=== PATIENT | male | born 1995 | race Caucasian/White ===

== ENCOUNTER 2018-08-17 07:27 | Emergency (ER) | payer BC ==
--- NOTE | 2018-08-17 07:37 | ED ---
HPI Chest Pain - HPI Summary HPI Summary: Pt is a 23 y/o male who presents to the ED c/o CP. He has had constant mid- sternal CP since 14:00 yesterday while lying on his cough. The pain is rated an 8/10 in severity and he reports shooting pains up his neck. Pain is made worse with lying down and deep breathing. Pt also c/o SOB and cough, but denies any sore throat, rhinorrhea, LE edema, or LE pain. He is unsure if he has any heartburn. Pt notes recent alcohol use, and took Advil this morning without relief. He denies any FHx of early CAD or blood clots. Resting O2 sat 100%. - History of Current Complaint Chief Complaint: EDChestPainROMI Time Seen by Provider: 08/17/18 07:32 Hx Obtained From: Patient Onset/Duration: Started Days Ago - 14:00 yesterday, Still Present Timing: Constant Current Severity: Severe Pain Intensity: 8 Pain Scale Used: 0-10 Numeric Chest Pain Location: Mid Sternal Chest Pain Radiates: Yes Chest Pain Radiates To:: Neck Aggravating Factor(s): Deep Breaths, Recumbent Position Associated Signs and Symptoms: Positive: Chest Pain, Shortness of Breath, Cough. Negative: Calf Pain/Swelling - Allergy/Home Medications Allergies/Adverse Reactions: Allergies Allergy/AdvReac Type Severity Reaction Status Date / Time No Known Allergies Allergy Verified 08/17/18 07:32 PMH/Surg Hx/FS Hx/Imm Hx Endocrine/Hematology History: Denies: Hx Diabetes Cardiovascular History: Denies: Hx Hypertension Respiratory History: Denies: Hx Asthma Infectious Disease History: No Infectious Disease History: Reports: Traveled Outside the [place] in Last 30 Days - Family History Known Family History: Negative: Cardiac Disease, Blood Disorder - blood clots - Social History Alcohol Use: Occasionally Hx Substance Use: No Substance Use Type: Reports: None Hx Tobacco Use: No Smoking Status (MU): Never Smoked Tobacco Review of Systems Negative: Sore Throat, Nasal Discharge Positive: Chest Pain Positive: Shortness Of Breath, Cough Negative: Myalgia - LE, Edema All Other Systems Reviewed And Are Negative: Yes Physical Exam - Summary Physical Exam Summary: Appearance: well appearing, no pain distress Skin: warm, dry, reflects adequate perfusion Head/face: normal Eyes: EOMI, TORY ENT: mucous membranes moist Neck: supple, non-tender Respiratory: CTA, breath sounds present Cardiovascular: RRR, pulses symmetrical Abdomen: non-tender, soft Bowel Sounds: present Musculoskeletal: normal, strength/ROM intact Neuro: normal, sensory motor intact, A&Ox3 Triage Information Reviewed: Yes Vital Signs On Initial Exam: Initial Vitals Temp Pulse Resp BP Pulse Ox 98.5 F 68 17 139/93 99 08/17/18 07:29 08/17/18 07:29 08/17/18 07:29 08/17/18 07:29 08/17/18 07:29 Vital Signs Reviewed: Yes Diagnostics - Vital Signs Vital Signs Temp Pulse Resp BP Pulse Ox 08/17/18 07:29 98.5 F 68 17 139/93 99 - Laboratory Lab Statement: Any lab studies that have been ordered have been reviewed, and results considered in the medical decision making process. - Radiology CXR Radiology Interpretation Completed By: Radiologist Summary of Radiographic Findings: NO EVIDENCE FOR ACTIVE CARDIOPULMONARY DISEASE. ED physician reviewed radiology report. - EKG 7:49 Cardiac Rate: Bradycardia - 58 bpm EKG Rhythm: Sinus Bradycardia ST Segment: Normal Summary of EKG Findings: Nl axis, short MS interval without delta waves, nl QRS Re-Evaluation - Re-Evaluation First Eval Re-Evaluation Time: 08:16 Change: Improved Comment: Pt's pain has nearly resolved after receiving the GI cocktail. Chest Pain Course/Dx - Course Course Of Treatment: Nurse's notes reviewed. Patient with substernal chest discomfort worse with laying down and exacerbated by Advil after drinking. He was given GI medications here following normal EKG and chest x-ray almost total resolution of symptoms. Treat symptomatically, follow-up [facility]. - Chest Pain Differential Diagnosis/HQI/PQRI: ACS, Chest Wall, GI Disease, Lower Respiratory Infection, Pulmonary Embolism - Diagnoses Provider Diagnoses: Atypical chest pain, GERD (gastroesophageal reflux disease) Discharge - Sign-Out/Discharge Documenting (check all that apply): Patient Departure - Discharge Patient Received Moderate/Deep Sedation with Procedure: No - Discharge Plan Condition: Improved Disposition: HOME Prescriptions: Famotidine TAB* [Pepcid 20 MG TAB*] 20 mg PO BID #14 tab Pantoprazole TAB * [Protonix TAB*] 40 mg PO DAILY #30 tab Sucralfate TAB* [Carafate*] 1 gm PO ACHS #40 tab Patient Education Materials: Diet for Stomach Ulcers and Gastritis (ED), Gastroesophageal Reflux Disease (ED) Referrals: [facility] [Provider Group] Additional Instructions: Avoid alcohol, anti-inflammatory medication such as Aleve, Advil and aspirin, caffeine and acidic foods. Give plenty of sleep. Return if worse, trouble breathing, new symptoms or other concerns. Follow-up with [facility]. - Billing Disposition and Condition Condition: IMPROVED Disposition: Home - Attestation Statements Document Initiated by Jesusibe: Yes Documenting Scribe: Brenda Roach Provider For Whom Frank is Documenting (Include Credential): Sanjeev Curiel MD Scribe Attestation: Brenda Hunter scribed for Sanjeev Curiel MD on 08/17/18 at 0841. Scribe Documentation Reviewed: Yes Provider Attestation: The documentation as recorded by the Brenda davis accurately reflects the service I personally performed and the decisions made by , Sanjeev Curiel MD Status of Scribe Document: Viewed
[2018-08-17] MEDS ORDERED: Lidocaine 2% VISCOUS* 15 ML UDC PO ONE (07:39)
[2018-08-17] MEDS ORDERED: Sucralfate TAB* 1 GM PO ONE (07:39)
[2018-08-17] MEDS ORDERED: Famotidine TAB* 20 MG PO ONE (07:39)
[2018-08-17] MEDS ORDERED: Al Hydrox/Mg Hydrox/Simet LIQ* 30 ML UDC PO ONE (07:39)
[2018-08-17 08:26] VITALS: BP 127/92
== END 2018-08-17 08:26 | disposition home or self-care (01) ==
LOC: ED 07:27
DX: R07.89 Other chest pain (principal); K21.9 Gastro-esophageal reflux disease without esophagitis; R94.31 Abnormal electrocardiogram [ECG] [EKG]
CPT/HCPCS: 71046; 93005; 99283; A9270-GY